=== PATIENT | female | born 1980 ===

== ENCOUNTER 2018-08-05 17:01 | Inpatient (IN) | payer OTHER ==
--- NOTE | 2018-08-05 19:22 | ED PDOC ---
HPI: Psych/Substance Abuse Time Seen by Provider: 08/05/18 18:05 Chief Complaint (Nursing): Psychiatric Evaluation Chief Complaint (Provider): Psychiatric Evaluation History Per: Patient, Family () Onset/Duration Of Symptoms: Days (x 2) Current Symptoms Are (Timing): Still Present Suicide/Self Injury Attempted (Context): None Associated Symptoms: Anxiety Additional Complaint(s): 38 year old female with a history of anxiety presents to the ED for psychiatric evaluation. reports that patient has not been able to sleep for two days because she is overly worried about her daughter and mother. She feels that patient is not safe at school and would like to keep her home, despite daughter's reassurance that she is fine. This morning, she wanted to buy tickets to [place] to see her mother because she was worried about her even after they spoke on the phone with mother this morning and she offered no complaints. She experienced another episode of the same symptoms previously. Patient was admitted for five days and started on medications including Risperol and a sleeping medication. After she ran out of medications, they followed up with the same doctor and decided to not continue with medication because patient was taking Melva for RA. Currently, she is taking Plaquenil for RA which decided to stop three days ago at the onset of symptoms. Offers no other complaints. PMD: Dr. Felipe Rubio Past Medical History Reviewed: Historical Data, Nursing Documentation, Vital Signs Vital Signs: Last Vital Signs Temp 98.1 F 08/05/18 17:58 Pulse 72 08/05/18 17:58 Resp 16 08/05/18 17:58 BP 137/84 08/05/18 17:58 Pulse Ox 100 08/05/18 17:58 - Medical History PMH: Anxiety - Surgical History Surgical History: No Surg Hx - Family History Family History: States: Unknown Family Hx - Allergies Allergies/Adverse Reactions: Allergies Allergy/AdvReac Type Severity Reaction Status Date / Time No Known Allergies Allergy Verified 08/05/18 18:00 Review of Systems ROS Statement: Except As Marked, All Systems Reviewed And Found Negative Psych: Positive for: Anxiety Physical Exam - Reviewed Nursing Documentation Reviewed: Yes Vital Signs Reviewed: Yes - Physical Exam Appears: Positive for: In Acute Distress (acute psychiatric distress; tearful) Head Exam: Positive for: ATRAUMATIC, NORMAL INSPECTION, NORMOCEPHALIC Skin: Positive for: Warm, Dry Eye Exam: Positive for: EOMI, PERRL ENT: Negative for: Pharyngeal Erythema, Tonsillar Exudate Neck: Positive for: Painless ROM, Supple Cardiovascular/Chest: Positive for: Regular Rate, Rhythm, Chest Non Tender. Neg ative for: Murmur Respiratory: Positive for: Normal Breath Sounds. Negative for: Respiratory Distress Gastrointestinal/Abdominal: Positive for: Soft. Negative for: Tenderness Back: Positive for: Normal Inspection. Negative for: Muscle Spasm Extremity: Positive for: Normal ROM. Negative for: Deformity Lymphatic: Negative for: Adenopathy Neurologic/Psych: Positive for: Alert, Mood/Affect (anxious). Negative for: Motor/Sensory Deficits - Laboratory Results Result Diagrams: 08/05/18 21:54 08/05/18 21:54 - ECG O2 Sat by Pulse Oximetry: 100 (RA) Pulse Ox Interpretation: Normal Medical Decision Making Medical Decision Makin:47 Impression: severe anxiety disorder Initial Plan: --UDS --Urine preg --Urine dip --Crisis evaluation 21:00 --CMP --CBC --TSH --CXR Medically clear for psych admission Scribe Attestation: Documented by Nia Maya acting as a scribe for Mel Martinez MD Provider Scribe Attestation: All medical record entries made by the Scribe were at my direction and personally dictated by me. I have reviewed the chart and agree that the record accurately reflects my personal performance of the history, physical exam, medical decision making, and the department course for this patient. I have also personally directed, reviewed, and agree with the discharge instructions and disposition. Disposition - Clinical Impression Clinical Impression: Anxiety - Disposition Disposition Time: 21:00 Condition: STABLE Forms: [employer] (Polish)
[2018-08-05 20:01] LABS: BARBITURATES, UR NEGATIVE (NEGATIVE); BENZODIAZEPINES, UR NEGATIVE (NEGATIVE); OPIATES, UR NEGATIVE (NEGATIVE); PHENCYCLIDINE, UR NEGATIVE (NEGATIVE)
[2018-08-05 21:58] LABS: BASO # 0.1 K/uL (0.0-0.2); BASO % 0.8 % (0.0-2.0); EOS # 0.2 K/uL (0.0-0.7); EOS % 1.6 % (0.0-4.0); HEMOGLOBIN 12.9 g/dL (12.0-16.0); LYMPH # 1.9 K/uL (1.0-4.3); LYMPH % 18.8 % (20.0-40.0); MEAN CELL VOLUME 72.5 fl (81.0-99.0); MEAN CORPUSCULAR HGB CONC 31.7 g/dL (33.0-37.0); MEAN PLATELET VOLUME 7.7 fl (7.2-11.7); MONO % 10.3 % (0.0-10.0); NEUT # 6.9 K/uL (1.8-7.0); NEUT % 68.5 % (50.0-75.0); RBC 5.61 Mil/uL (3.80-5.20); RED CELL DISTRIBUTION WIDTH 16.3 % (11.5-14.5); WHITE BLOOD COUNT 10.1 K/uL (4.8-10.8)
[2018-08-05 22:12] LABS: ALT/SGPT 28 U/L (9-52); AST/SGOT 26 U/L (14-36); BLOOD UREA NITROGEN 10 mg/dl (7-17); CALCIUM 8.9 mg/dL (8.4-10.2); GFR NON-AFRICAN AMERICAN > 60
[2018-08-05 23:26] VITALS: O2SAT 99
[2018-08-05] MEDS ORDERED: DiphenhydrAMINE 50 mg/ml Inj IM PRN (23:34)
[2018-08-05] MEDS ORDERED: Alum-Mag Hydrox-Simethicone Susp (30 mL) PO PRN (23:34)
[2018-08-05] MEDS ORDERED: Magnesium Hydroxide Susp 30 ml UD PO PRN (23:34)
--- NOTE | 2018-08-06 02:10 | PCM.BM ---
<Milena Danielson L - Last Filed: 08/06/18 02:08> Treatment Plan Problems - Problems identified on initial assessmt Medication Nonadherence Date Initiated: 08/06/18 Time Initiated: 02:08 Assessment reference: NA Status: Active Delusiona Date Initiated: 08/06/18 Time Initiated: 02:09 Assessment reference: NA Status: Active Hopelessness/Helplessness Date Initiated: 08/06/18 Time Initiated: 02:10 Assessment reference: NA Status: Active Altered SLeep Pattern Date Initiated: 08/06/18 Time Initiated: 02:10 Assessment reference: NA Status: Active Treatment assets and liabiliti Patient Assests: cooperative, ADL independent, good support system, negotiates basic needs, good past tx response Patient Liabilities: imparied memory, other (onset of possible chronic illness) - Milieu Protocol Maintain good personal hygiene: every shift Encourage regular showers, every shift Remind patient to perform daily oral care, every shift Assist patient to perform ADL's Conduct patient checks and document Observation sheet: Q15 minutes Maintain personal safety: every shift Educate patient to report safety concerns to staff, every shift Monitor environment for contraband/sharps Medication safety: Monitor for expected outcome, potential side effects: every shift, Assess barriers to learning: every shift, Assess readiness for medication education: every shift <Mathew Zambrano J - Last Filed: 08/09/18 12:35> Treatment Plan Problems - Problems identified on initial assessmt Medication Nonadherence Date Initiated: 08/06/18 Time Initiated: 02:08 Assessment reference: NA Status: Active Delusiona Date Initiated: 08/06/18 Time Initiated: 02:09 Assessment reference: NA Status: Active Hopelessness/Helplessness Date Initiated: 08/06/18 Time Initiated: 02:10 Assessment reference: NA Status: Active Altered SLeep Pattern Date Initiated: 08/06/18 Time Initiated: 02:10 Assessment reference: NA Status: Active Altered Thought Process Date Initiated: 08/07/18 Time Initiated: 09:48 Assessment reference: NA Status: Active Medication non adherence Date Initiated: 08/07/18 Time Initiated: 09:50 Assessment reference: NA Status: Active Altered Sleep Patterns Date Initiated: 08/07/18 Time Initiated: 09:51 Assessment reference: NA Status: Active Family Contact Family involvement: Family/SO is involved Family contact: Patient agrees to contact, Family has been contacted by patient, Telephone contact initiated by staff Family contact name: Nery - Family contacted how many times per week?: 4 Family contact comment: Brick Chimney Supervisor spoke with pt's , Nery [phone], who reported that pt's paranoia began on Sunday, 08/02, and continued to worsen as pt was not sleeping well Sunday or Sunday. Other than the lack of sleep pt's could not identify any stressors. Pt reported that pt's paranoia was mainly directed to the safety of her daughter, but also toward his safety. Pt was hospitalized at [facility] in May and pt continued to take medication until it ran out after 2 weeks at home. Pt followed up at [facility], but the outpatient doctors did not recommend pt continuing psych medications at this time according to pt's . Pt's did not seem to understand the importance of continued adherence to anti-psychotic medications as this is pt's second psychotic break and signwriter provided psychoeducation. Pt's also inquired in pt's RA medication, Plaquenil, might have caused psychosis. Brick Chimney Supervisor relayed this information to Dr. Sanchez and she will look into it. Brick Chimney Supervisor updated pt's that pt's paranoia has lessened, yet she still feels that she must apologize to "everyone" or bad things could befall her family, but pt is mainly fixated on her daughter. Brick Chimney Supervisor set-up meeting with pt's for 08/07/18 at 1000. - Goals for Treatment Patient goals for treatment: Pt's goal for treatment is to be forgiven, so that no harm comes to her daughter or . Pt is currently paranoid and delusional and incapable of making insighful, reality based goals for herself at this time. It is the goal of the treatment team to clear these delusions and aid the pt in gaining insight into her mental illness. Patient's family/SO goals for treatment: Pt's appears to have minimal insight into his 's condition and was resistant to medication following discharge. Discharge/Continuing Care - Education Needs Education Needs: Family Medication, Family Diagnosis/Disease Process, Family Coping Skills, Family Placement options, Family Personal Hygiene/Grooming, Family Aftercare Safety Plan, Patient Medication, Patient Diagnosis/Disease Process, Patient Coping Skills, Patient Placement options, Patient Personal Hygiene/Grooming, Patient Aftercare Safety Plan - Discharge Discharge Criteria: Tolerates medication w/o severe side effects, Free of paranoid thoughts, Free of agitation, Normal sleep pattern, Ability to care for self, Reduction of target symptoms Discharge to:: Home, With Family - Treatment Team Participation Patient/Family/SO Statement: 08/09/18 12:35 Pt seen in treatment team on 08/07/18: Pt appeared less paranoid, brighter and with a nelson affect. Pt was still vague at times and presented as a poor historian. Pt reported that she felt that her daughter was safe in her husbands care and had no complaints about daughter attending school. Pt was able to work through her paranoid delusions and view them from a reality standpoint. Pt denied current SI/HI, AVT hallucinations and delusions. Discussed with Family/SO: Yes Was Patient/Family/SO present at Treatment Team Meeting: Yes <Yessenia Sanchez - Last Filed: 08/09/18 12:50> - Diagnosis (1) Paranoid delusion Status: Acute Interventions: 08/09/18 12:50 pharmacotherapy
[2018-08-06 07:33] LABS: T4 9.7 ug/dl (5.5-11.0)
--- NOTE | 2018-08-06 10:13 | RAD ---
Date of service: 08/05/2018 HISTORY: clearance COMPARISON: No prior. FINDINGS: LUNGS: The lungs are well inflated and clear. PLEURA: No pleural effusions or pneumothorax. CARDIOVASCULAR: The heart is normal in size. No aortic atherosclerotic calcification present. OSSEOUS STRUCTURES: Within normal limits for the patient's age. VISUALIZED UPPER ABDOMEN: Normal. OTHER FINDINGS: None. IMPRESSION: No active pulmonary disease.
[2018-08-06] MEDS ORDERED: Risperidone M tab 1 MG PO STA (10:46)
--- NOTE | 2018-08-06 13:07 | PCM.PSYCH ---
Initial Psychiatric Evaluation - Initial Psychiatric Evaluation Type of Admission: Voluntary Legal Status: Capacity Chief Complaint (in patient's own words): I want to protect my family History of Present Illness and Precipitating Events: pt is 38 ys old female brought to ER by due to psychosis , anxiety and depression this is second psychotic episode for patient , first episode was three months ago, pt was admitted to [facility], placed on risperidone, pt has not been compliant with medications, for past three weeks became increasingly anxious, tearfull, poor sleep started having paranoid delusions believing that people want to hurt her daughter and , pt started having delusions of persecution towards daughter's school and tried to stop her daughter from going to school on evaluation pt confused, continues to verbalize paranoid delusions, stating she needs to take her family to [place] so they do not get hurt pt teafull anxious depressed, reported passive suicidal ideation stating she should not be alive if she could not protest her family pt denied active thoughts of self harm on the unit, denied command hallucinations Current Medications: Active Medications Generic Name Dose Route Start Last Admin Trade Name Freq PRN Reason Stop Dose Admin Acetaminophen 650 mg 08/05/18 23:34 Tylenol 325mg Tab PO Q4 PRN Pain, moderate (4-7) Al Hydrox/Mg Hydrox/Simethicone 30 ml 08/05/18 23:34 Maalox Plus 30 Ml PO Q4 PRN Dyspepsia Benztropine Mesylate 0.5 mg 08/06/18 22:00 Cogentin PO HS CHRISTIANO Benztropine Mesylate 0.5 mg 08/07/18 09:00 Cogentin PO DAILY CHRISTIANO Diphenhydramine HCl 50 mg 08/05/18 23:34 Benadryl IM Q6 PRN Extrapyramidal S/S Unable PO Diphenhydramine HCl 50 mg 08/05/18 23:34 08/06/18 00:56 Benadryl PO 50 mg Q6 PRN Administration Extrapyramidal Symptoms Haloperidol 5 mg 08/05/18 23:34 1818 00:56 Haldol PO 5 mg Q4 PRN Administration Agitation Haloperidol Lactate 5 mg 08/05/18 23:34 Haldol IM Q4 PRN Agitation, Unable to Take PO Lorazepam 2 mg 08/05/18 23:34 Ativan IM Q8 PRN Anxiety/Agitation,Unable PO Lorazepam 1 mg 08/05/18 23:34 Ativan PO Q6 PRN Anxiety/Agitation Magnesium Hydroxide 30 ml 08/05/18 23:34 Milk Of Magnesia PO HS PRN Constipation Risperidone 1 mg 08/06/18 22:00 Risperdal M-Tab PO HS CHRISTIANO Risperidone 1 mg 08/07/18 09:00 Risperdal M-Tab PO DAILY CHRISTIANO Trazodone HCl 50 mg 08/06/18 00:35 08/06/18 01:00 Desyrel PO 50 mg HS PRN Administration Insomnia Past Psychiatric History - Past Psychiatric History Explanation of prior treatment: one hospitalization at [facility] , pt non compliant with treatment History of ETOH/Drug Use: none History of Family Illness: none Pertinent Medical Hx (Current Medical&Sleep Prob, Allergies): Allergies Allergy/AdvReac Type Severity Reaction Status Date / Time No Known Allergies Allergy Verified 08/05/18 18:00 Mental Status Examination - Personal Presentation Personal Presentation: Looks stated age - Affect Affect: Constricted, Depressed - Motor Activity Motor Activity: Psychomotor Retardation - Reliability in Providing Information Reliability in Providing Information: Poor, due to alteration in thoughts, Poor, due to altered mood - Speech Speech: Irrelevant, Tangential - Mood Mood: Depressed, Anxious - Formal Thought Process Formal Thought Process: Delusions, Paranoia - Cognitive Functions Sensorium: Alert Attention/Concentration: Easily distracted Abstract Thinking: [place] Estimate of Intelligence: Average - Risk Risk: Elopement, Diminished functioning - Strength & Assets Inventory Strength & Assets Inventory: Family support - Limitations Additional comments: non compliance DSM 5 DX - DSM 5 DSM 5 Diagnosis: psychotic disorder rule out major depression with psychotic features' rule out schizophreniform disorder - Recommended/Plan of Treatment Treatment Recommendations and Plan of Treatment: pt will be started on risperidone 1mg bid, cogentin 0.5mg bid lexapro 5mg qhs monitor ptient for psychopharmacological effects and side effect profile internal medicine consult CBT group and supportive therapy
--- NOTE | 2018-08-06 15:07 | CP.PCM.CON ---
History of Present Illness - History of Present Illness History of Present Illness: 38 yo female with history of psychosis, anxiety and depression admitted because of delusion of persecution. Review of Systems - Review of Systems All systems: reviewed and no additional remarkable complaints except (aside from those mentioned above, 12 point system revie were negative by me) Past Patient History - Tetanus Immunizations Tetanus Immunization: Unknown - Past Social History Smoking Status: Never Smoked Chewing Tobacco Use: No Cigar Use: No Alcohol: None - CARDIAC Hx Cardiac Disorders: No Hx Hypertension: No - PULMONARY Hx Tuberculosis: No - NEUROLOGICAL HX Cerebrovascular Accident: No Hx Seizures: No - HEENT Hx HEENT Problems: No - RENAL Hx Chronic Kidney Disease: No - ENDOCRINE/METABOLIC Hx Endocrine Disorders: No - HEMATOLOGICAL/ONCOLOGICAL Hx Cancer: No Hx Human Immunodeficiency Virus (HIV): No - INTEGUMENTARY Hx Dermatological Problems: No - MUSCULOSKELETAL/RHEUMATOLOGICAL Hx Rheumatoid Arthritis: Yes - GASTROINTESTINAL Hx Gastrointestinal Disorders: No - GENITOURINARY/GYNECOLOGICAL Hx Sexually Transmitted Disorders: No - PSYCHIATRIC Hx Substance Use: No - SURGICAL HISTORY Hx Surgeries: No - ANESTHESIA Hx Anesthesia: No Meds Allergies/Adverse Reactions: Allergies Allergy/AdvReac Type Severity Reaction Status Date / Time No Known Allergies Allergy Verified 08/05/18 18:00 - Medications Medications: Current Medications Acetaminophen (Tylenol 325mg Tab) 650 mg PO Q4 PRN PRN Reason: Pain, moderate (4-7) Al Hydrox/Mg Hydrox/Simethicone (Maalox Plus 30 Ml) 30 ml PO Q4 PRN PRN Reason: Dyspepsia Benztropine Mesylate (Cogentin) 0.5 mg PO HS CHRISTIANO Benztropine Mesylate (Cogentin) 0.5 mg PO DAILY CHRISTIANO Diphenhydramine HCl (Benadryl) 50 mg IM Q6 PRN PRN Reason: Extrapyramidal S/S Unable PO Diphenhydramine HCl (Benadryl) 50 mg PO Q6 PRN PRN Reason: Extrapyramidal Symptoms Last Admin: 08/06/18 00:56 Dose: 50 mg Haloperidol (Haldol) 5 mg PO Q4 PRN PRN Reason: Agitation Last Admin: 08/06/18 00:56 Dose: 5 mg Haloperidol Lactate (Haldol) 5 mg IM Q4 PRN PRN Reason: Agitation, Unable to Take PO Lorazepam (Ativan) 2 mg IM Q8 PRN PRN Reason: Anxiety/Agitation,Unable PO Lorazepam (Ativan) 1 mg PO Q6 PRN PRN Reason: Anxiety/Agitation Magnesium Hydroxide (Milk Of Magnesia) 30 ml PO HS PRN PRN Reason: Constipation Risperidone (Risperdal M-Tab) 1 mg PO HS CHRISTIANO Risperidone (Risperdal M-Tab) 1 mg PO DAILY CHRISTIANO Trazodone HCl (Desyrel) 50 mg PO HS PRN PRN Reason: Insomnia Last Admin: 08/06/18 01:00 Dose: 50 mg Physical Exam - Constitutional Appears: No Acute Distress - Head Exam Head Exam: ATRAUMATIC - Eye Exam Eye Exam: absent: Scleral icterus - ENT Exam ENT Exam: Mucous Membranes Moist - Neck Exam Neck exam: Negative for: Meningismus - Respiratory Exam Respiratory Exam: absent: Rales, Rhonchi, Wheezes, Respiratory Distress - Cardiovascular Exam Cardiovascular Exam: REGULAR RHYTHM, +S1, +S2 - GI/Abdominal Exam GI & Abdominal Exam: Soft. absent: Tenderness - Rectal Exam Rectal Exam: Deferred - Extremities Exam Extremities exam: Negative for: pedal edema - Neurological Exam Neurological exam: Alert, Oriented x3 - Psychiatric Exam Psychiatric exam: Normal Affect - Skin Skin Exam: Dry, Intact Results - Vital Signs Recent Vital Signs: Last Vital Signs Temp 98.1 F 08/06/18 00:54 Pulse 71 08/06/18 00:57 Resp 18 08/06/18 00:57 BP 124/75 08/06/18 00:54 Pulse Ox 99 08/05/18 23:23 - Labs Result Diagrams: 08/05/18 21:54 08/05/18 21:54 Labs: Laboratory Results - last 24 hr 08/05/18 08/05/18 08/05/18 19:32 21:54 21:54 WBC 10.1 RBC 5.61 H Hgb 12.9 Hct 40.6 MCV 72.5 L MCH 23.0 L MCHC 31.7 L RDW 16.3 H Plt Count 236 MPV 7.7 Neut % (Auto) 68.5 Lymph % (Auto) 18.8 L [place] % (Auto) 10.3 H Eos % (Auto) 1.6 Baso % (Auto) 0.8 Neut # (Auto) 6.9 Lymph # (Auto) 1.9 [place] # (Auto) 1.0 H Eos # (Auto) 0.2 Baso # (Auto) 0.1 Sodium 137 Potassium 4.0 Chloride 106 Carbon Dioxide 20 L Anion Gap 15 BUN 10 Creatinine 0.6 L Est GFR ( Amer) > 60 Est GFR (Non-Af Amer) > 60 Random Glucose 138 H Hemoglobin A1c Calcium 8.9 Total Bilirubin 0.2 AST 26 ALT 28 Alkaline Phosphatase 89 Total Protein 7.8 Albumin 4.0 Globulin 3.8 Albumin/Globulin Ratio 1.0 Triglycerides Cholesterol LDL Cholesterol Direct HDL Cholesterol Thyroxine (T4) TSH 3rd Generation 5.49 H Urine Opiates Screen Negative Urine Methadone Screen Negative Ur Barbiturates Screen Negative Ur Phencyclidine Scrn Negative Ur Amphetamines Screen Negative U Benzodiazepines Scrn Negative U Oth Cocaine Metabols Negative U Cannabinoids Screen Negative 08/06/18 08/06/18 07:00 07:00 WBC RBC Hgb Hct MCV MCH MCHC RDW Plt Count MPV Neut % (Auto) Lymph % (Auto) [place] % (Auto) Eos % (Auto) Baso % (Auto) Neut # (Auto) Lymph # (Auto) [place] # (Auto) Eos # (Auto) Baso # (Auto) Sodium Potassium Chloride Carbon Dioxide Anion Gap BUN Creatinine Est GFR ( Amer) Est GFR (Non-Af Amer) Random Glucose Hemoglobin A1c 5.4 Calcium Total Bilirubin AST ALT Alkaline Phosphatase Total Protein Albumin Globulin Albumin/Globulin Ratio Triglycerides 97 Cholesterol 179 LDL Cholesterol Direct 104 HDL Cholesterol 60 Thyroxine (T4) 9.70 TSH 3rd Generation 7.98 H Urine Opiates Screen Urine Methadone Screen Ur Barbiturates Screen Ur Phencyclidine Scrn Ur Amphetamines Screen U Benzodiazepines Scrn U Oth Cocaine Metabols U Cannabinoids Screen Assessment & Plan (1) Paranoid delusion Status: Acute Comment: psyche is managing
[2018-08-06] MEDS: Risperidone M tab 1 MG PO SCH (21:16)
[2018-08-07] MEDS: Risperidone M tab 1 MG PO SCH ×2 (08:46→21:06)
--- NOTE | 2018-08-07 09:50 | PCM.BM ---
Treatment Plan Problems - Problems identified on initial assessmt Medication Nonadherence Date Initiated: 08/06/18 Time Initiated: 02:08 Assessment reference: NA Status: Active Delusiona Date Initiated: 08/06/18 Time Initiated: 02:09 Assessment reference: NA Status: Active Hopelessness/Helplessness Date Initiated: 08/06/18 Time Initiated: 02:10 Assessment reference: NA Status: Active Altered SLeep Pattern Date Initiated: 08/06/18 Time Initiated: 02:10 Assessment reference: NA Status: Active Altered Thought Process Date Initiated: 08/07/18 Time Initiated: 09:48 Assessment reference: NA Status: Active Medication non adherence Date Initiated: 08/07/18 Time Initiated: 09:50 Assessment reference: NA Status: Active Altered Sleep Patterns Date Initiated: 08/07/18 Time Initiated: 09:51 Assessment reference: NA Status: Active Treatment assets and liabiliti Patient Assests: cooperative, ADL independent, good support system, negotiates basic needs, good past tx response, cognitively intact Patient Liabilities: imparied memory, other (denial of mental illness, non adherence w psych meds) - Milieu Protocol Maintain good personal hygiene: daily Encourage regular showers, every shift Remind patient to perform daily oral care, every shift Assist patient to perform ADL's Conduct patient checks and document Observation sheet: Q15 minutes Maintain personal safety: every shift Educate patient to report safety concerns to staff, every shift Monitor environment for contraband/sharps Medication safety: Monitor for expected outcome, potential side effects: every shift, Assess barriers to learning: every shift, Assess readiness for medication education: every shift Milieu Narrative: pt will be started on risperidone 1mg bid, cogentin 0.5mg bid lexapro 5mg qhs monitor ptient for psychopharmacological effects and side effect profile internal medicine consult CBT group and supportive therapy Discharge/Continuing Care - Treatment Team Participation Patient/Family/SO Statement: pt will be started on risperidone 1mg bid, cogentin 0.5mg bid lexapro 5mg qhs monitor ptient for psychopharmacological effects and side effect profile internal medicine consult CBT group and supportive therapy
--- NOTE | 2018-08-07 17:19 | PCM.PYCHPN ---
Psychiatric Progress Note - Psychiatric Progress Note Patient seen today, length of contact: pt evaluated discussed with team chart reviewed Patient Chief Complaint: I worry about my daughter's safety Problems Identified/Issues Discussed: pt evaluated with treatment team, communicating more , and less anxious, pt continues to have paranoid delusions that somebody is after her and her family also reporting ideas of reference and possibility of mind reading by her friends , dleusons of persecution elicited, denied command hallucinations denied suicidal or homicidal ideation Medical Problems: one hospitalization at [facility] , pt non compliant with treatment DSM 5 Symptoms Update: schizophreniform disorder Medication Change: Yes (start lexapro) Medical Record Reviewed: Yes Mental Status Examination - Cognitive Function Orientation: Person, Place Attention: WNL Concentration: Poor Association: Loose Decription of patient's judgement and insights: poor insight and judgment - Mood Mood: Depressed, Anxious - Affect Affect: Constricted, Depressed - Formal Thought Process Formal Thought Process: Delusions, Paranoia - Suicidal Ideation Suicidal Ideation: No - Homicidal Ideation Homicidal Ideation: No Goal/Treatment Plan - Goal/Treatment Plan Need for Continued Stay: Severe depression anxiety, Discharge may exacerbated symptoms Progress Toward Problem(s) and Goals/Treatment Plan: risperidone 1mg bid, cogentin 0.5mg bid lexapro 5mg qhs monitor ptient for psychopharmacological effects and side effect profile internal medicine consult CBT group and supportive therapy
[2018-08-08] MEDS: Risperidone M tab 1 MG PO SCH ×2 (09:06→21:03)
[2018-08-08 17:27] VITALS: RESP 18
--- NOTE | 2018-08-08 23:24 | PCM.PYCHPN ---
Psychiatric Progress Note - Psychiatric Progress Note Patient seen today, length of contact: pt evaluated discussed with team chart reviewed Patient Chief Complaint: depression somewhat less, less somewhat worries that some one is trying to harm her family, pt seen in [facility] , rx adherent per staff Problems Identified/Issues Discussed: alteration in mood alteration in cognition Medical Problems: per chart Diagnostic Results: per psychiatry per medicine per nursing per social service technician per recreational therapy DSM 5 Symptoms Update: somewhat lessened depression and concerns that someone is try to harm her family Medication Change: No Medical Record Reviewed: Yes Consults ordered or reviewed: pt seen by hospitalist Mental Status Examination - Cognitive Function Orientation: Person, Place Attention: WNL Concentration: Poor Association: Loose Decription of patient's judgement and insights: impaired - Mood Mood: Depressed, Anxious - Affect Affect: Constricted, Depressed - Speech Speech: Soft - Formal Thought Process Formal Thought Process: Delusions, Paranoia - Suicidal Ideation Suicidal Ideation: No - Homicidal Ideation Homicidal Ideation: No Goal/Treatment Plan - Goal/Treatment Plan Need for Continued Stay: Severe depression anxiety, Discharge may exacerbated symptoms Progress Toward Problem(s) and Goals/Treatment Plan: inpt [facility] adjust meds per clinical status vital signs and clinical observation per protocol and per clinical status discharge planning in progress Estimated Date of D/C: 08/12/18 - Smoking Cessation Smoking Cessation Initiated: No Reason for not providing: pt defers
[2018-08-09] MEDS: Risperidone M tab 1 MG PO SCH ×2 (09:08→21:03)
--- NOTE | 2018-08-09 13:56 | PCM.PYCHPN ---
Psychiatric Progress Note - Psychiatric Progress Note Patient seen today, length of contact: pt evaluated discussed with team chart reviewed Patient Chief Complaint: I feel better today and I know I need to concentrate on myself Problems Identified/Issues Discussed: pt evaluated , continues to present with anxious mood and affect as she continues to worry about her daughter's safety, patient however shows partial clearing of the paranoid delusions, able to somewhat challenge the possible lack of reality of the delusions, CBT provided ,no reported side effects of medications, , discussed increasing lexapro and CT scan of her for first psychotic episode pt denied command hallucinations denid suicidal ideation Medical Problems: one hospitalization at [facility] , pt non compliant with treatment DSM 5 Symptoms Update: psychotic disorder rule out schizophreniform disorder rule out major depression with psychosis Medication Change: Yes (increase lexapro) Medical Record Reviewed: Yes Mental Status Examination - Cognitive Function Orientation: Person, Place Attention: WNL Concentration: WNL Association: WNL Fund of Knowledge: [facility] Decription of patient's judgement and insights: partial insight, fair judgment - Mood Mood: Depressed, Anxious - Affect Affect: Constricted, Depressed - Speech Speech: Appropriate - Formal Thought Process Formal Thought Process: Delusions, Paranoia - Suicidal Ideation Suicidal Ideation: No - Homicidal Ideation Homicidal Ideation: No Goal/Treatment Plan - Goal/Treatment Plan Need for Continued Stay: Severe depression anxiety, Discharge may exacerbated symptoms Progress Toward Problem(s) and Goals/Treatment Plan: risperidone 1mg bid, cogentin 0.5mg bid increase lexapro 10mg qhs monitor ptient for psychopharmacological effects and side effect profile ict scan without contrast/ follow up on results CBT group and supportive therapy Estimated Date of D/C: 08/12/18
[2018-08-10] MEDS: Risperidone M tab 1 MG PO SCH ×2 (08:45→21:12)
[2018-08-10] MEDS: guaiFENesin 100 mg/5 ml Syrup UD PO PRN ×2 (10:43→17:20)
--- NOTE | 2018-08-10 10:44 | PCM.PYCHPN ---
Psychiatric Progress Note - Psychiatric Progress Note Patient seen today, length of contact: Pt evaluated, chart reviewed Patient Chief Complaint: Paranoia Problems Identified/Issues Discussed: Patient reports that her mood is improving, but she continues to feel paranoid and concerned enough about her daughters safety that she believes they need to move to [place] to protect her daughter. She denies adverse effects to medications. CT Head done; read pending Medication Change: No Medical Record Reviewed: Yes Consults ordered or reviewed: Medicine consult Mental Status Examination - Cognitive Function Orientation: Person, Place, Situation, Time Memory: Intact Attention: WNL Concentration: WNL Association: [facility] Fund of Knowledge: [facility] Decription of patient's judgement and insights: Poor I/J - Mood Mood: Depressed, Anxious - Affect Affect: Constricted, Depressed - Speech Speech: Appropriate - Formal Thought Process Formal Thought Process: Delusions, Paranoia Psychotic Thoughts and Behaviors: +Paranoia - Suicidal Ideation Suicidal Ideation: No - Homicidal Ideation Homicidal Ideation: No Goal/Treatment Plan - Goal/Treatment Plan Need for Continued Stay: Severe depression anxiety, Discharge may exacerbated symptoms Progress Toward Problem(s) and Goals/Treatment Plan: Psychosis NOS r/o MDD w/ psychosis; r/o Schizophrenia -Continue Risperdal, Cogentin and Lexapro -Individual and group therapy -f/u Radiology report of CT head -Medicine consult -Disposition planning Estimated Date of D/C: 08/12/18
--- NOTE | 2018-08-10 13:46 | CT ---
Date of service: 08/09/2018 PROCEDURE: CT HEAD WITHOUT CONTRAST. HISTORY: First psycotic episode COMPARISON: None available. TECHNIQUE: Axial computed tomography images were obtained through the head/brain without intravenous contrast. Radiation dose: Total exam DLP = 674.3 mGy-cm. This CT exam was performed using one or more of the following dose reduction techniques: Automated exposure control, adjustment of the mA and/or kV according to patient size, and/or use of iterative reconstruction technique. FINDINGS: HEMORRHAGE: No intracranial hemorrhage. BRAIN: No mass effect or edema. No atrophy or chronic microvascular ischemic changes. VENTRICLES: Unremarkable. No hydrocephalus. CALVARIUM: Unremarkable. PARANASAL SINUSES: Unremarkable as visualized. No significant inflammatory changes. MASTOID AIR CELLS: Unremarkable as visualized. No inflammatory changes. OTHER FINDINGS: None. IMPRESSION: No acute intracranial hemorrhage..
--- NOTE | 2018-08-11 08:17 | PCM.PYCHPN ---
Psychiatric Progress Note - Psychiatric Progress Note Patient seen today, length of contact: Pt evaluated, chart reviewed Patient Chief Complaint: Paranoia Problems Identified/Issues Discussed: Patient reports that her mood continues to improve. She is more goal oriented and want to return home to be with her family. She continues to have mild paranoia, but is less pressured to talk about it and does not have any concrete persecutory ideations of how or who wants to harm her daughter. She denies adverse effects to medications. CT Head wnl Medication Change: No Medical Record Reviewed: Yes Consults ordered or reviewed: Medicine consult Mental Status Examination - Cognitive Function Orientation: Person, Place, Situation, Time Memory: Intact Attention: WNL Concentration: WNL Association: WNL Fund of Knowledge: [facility] Decription of patient's judgement and insights: Poor I/J - Mood Mood: Depressed, Anxious - Affect Affect: Constricted, Depressed - Speech Speech: Appropriate - Formal Thought Process Formal Thought Process: Paranoia Psychotic Thoughts and Behaviors: +Paranoia - Suicidal Ideation Suicidal Ideation: No - Homicidal Ideation Homicidal Ideation: No Goal/Treatment Plan - Goal/Treatment Plan Need for Continued Stay: Discharge may exacerbated symptoms Progress Toward Problem(s) and Goals/Treatment Plan: Psychosis NOS r/o MDD w/ psychosis; r/o Schizophrenia -Continue Risperdal, Cogentin and Lexapro -Individual and group therapy -CT head wnl -Medicine consult -Disposition planning
[2018-08-11] MEDS: Risperidone M tab 1 MG PO SCH ×2 (09:05→21:17)
[2018-08-11] MEDS: Multivitamin With Minerals Tab PO SCH (09:05)
[2018-08-11] MEDS: guaiFENesin 100 mg/5 ml Syrup UD PO PRN ×2 (10:14→21:17)
[2018-08-12] MEDS: Risperidone M tab 1 MG PO SCH (08:58)
[2018-08-12] MEDS: Multivitamin With Minerals Tab PO SCH (08:58)
[2018-08-12 09:09] VITALS: BP 105/70; PULSE 80; TEMP 96.9
--- NOTE | 2018-08-12 13:14 | PCM.PYCHDC ---
Mental Status Examination - Mental Status Examination Orientation: Person, Place Memory: Intact Mood: Neutral Affect: Broad Speech: Appropriate Attention: WNL Association: WNL Fund of Knowledge: WNL Formal Thought Process: No Impairment Description of patient's judgement and insight: partial insight, fair judgment Psychotic Thoughts and Behaviors: pt on discharge denied any current psychotic symptoms, non elicited Suicidal Ideation: No Current Homicidal Ideation?: No Discharge Summary - Discharge Note Reason for Hospitalization: pt is 38 ys old female brought to ER by due to psychosis , anxiety and depression this is second psychotic episode for patient , first episode was three months ago, [place] was [place] [facility], placed on risperidone, pt has not been compliant with medications, for past three weeks became increasingly anxious, tearfull, poor sleep started having paranoid delusions believing that people want to hurt her daughter and , pt started having delusions of persecution towards daughter's school and tried to stop her daughter from going to school on evaluation pt confused, continues to verbalize paranoid delusions, stating she needs to take her family to [place] so they do not get hurt pt teafull anxious depressed, reported passive suicidal ideation stating she should not be alive if she could not protest her family pt denied active thoughts of self harm on the unit, denied command hallucinations Consultations:: List each consultation separately and include: 1. Reason for request. 2. Findings. 3. Follow-up Summary of Hospital Course include:: 1. Description of specific treatment plan utilized for patients during their course of treatmen. 2. Summarize the time- course for resolution of acute symptoms and/or regressed behaviors. 3. Describe issues identified and worked on during hospitalization. 4. Describe medication utilized. 5. Describe medical problems identified and treated. 6. 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 Goff was contacted upon pt consent and treatment plan discussed with him CT scan head was done and results were within normal limit treatment plan was also discussed with upon patient consent on discharge pt mental status was stable with clearing off of the paranoid delusions pt denied any current suicidal or homicidal ideatiuons - Diagnosis (1) Paranoid delusion Current Visit: Yes Status: Acute - Final Diagnosis (DSM 5) Condition upon Discharge: STABLE DSM 5: psychotic disorder rule out depression with psychosis rule out schizophreniform disorder Disposition: HOME/ ROUTINE Follow-up Treatment Plan: risperidone 1mg bid, cogentin 0.5mg bid increase lexapro 10mg qhs monitor ptient for psychopharmacological effects and side effect profile ict scan without contrast/ follow up on results CBT group and supportive therapy Prescriptions/Medication Reconciliation: Benztropine [Cogentin] 0.5 mg PO DAILY 30 Days #30 tab Benztropine [Cogentin] 0.5 mg PO HS 30 Days #30 tab Escitalopram [Lexapro] 10 mg PO HS 30 Days #30 tab Multimineral/Multivitamin [Therapeutic-M Tab] 1 tab PO DAILY 30 Days #30 tab risperiDONE [RisperDAL Tab] 1 mg PO DAILY 30 Days #30 tab risperiDONE [RisperDAL Tab] 2 mg PO HS 30 Days #30 tab traZODone [Desyrel] 50 mg PO HS PRN 30 Days #30 tab PRN Reason: Insomnia - Antipsychotic Medications Pt discharged on 2 or more routine antipsychotic medications: No
== END 2018-08-12 13:38 | disposition home or self-care (01) | DRG 885 ==
LOC: H.ER 17:01 → H.ERHOLD 22:31 → H.PSYCH 08-06 00:01
PROVIDERS: ADMIT Psychiatry & Neurology Psychiatry; ATTEND Psychiatry & Neurology Psychiatry
PROC: GZHZZZZ Group Psychotherapy (ICD-10-PCS; principal; 2018-08-05)
PROC: GZ58ZZZ Individual Psychotherapy, Cognitive-Behavioral (ICD-10-PCS; 2018-08-05)
PROC: GZ56ZZZ Individual Psychotherapy, Supportive (ICD-10-PCS; 2018-08-05)
DX: F23 Brief psychotic disorder (principal); R45.851 Suicidal ideations; Z91.14 Patient's other noncompliance with medication regimen; M06.9 Rheumatoid arthritis, unspecified; Z91.19 Patient's noncompliance with other medical treatment and regimen